=== PATIENT | female | born 1975 | race Caucasian/White ===

== ENCOUNTER → 2017-01-16 | Outpatient (CLI) | payer OTHER ==
--- NOTE | 2017-01-16 10:28 | REP ---
Clinical: Dating and viability. Technique: Transabdominal and transvaginal pelvic ultrasound with color Doppler evaluation. Findings: Single live early intrauterine is appreciated. Gestational sac with yolk sac and pole identified. [place]-rump length of 6 mm corresponds to 6 weeks 3 days gestational age with estimated date of delivery 09/08/2017 . heart rate equals 133 beats per minute. No gross abnormalities are identified. Impression: Single live early intrauterine at 6 weeks 3 days gestational age. Complete anatomical assessment should be performed and 19-20 weeks. Signed by Antonio Rain MD 01/16/2017 10:20 A
== END ==
LOC: M LAB 08:23
PROVIDERS: ATTEND Student in an Organized Health Care Education/Training Program
DX: O36.80X0 Pregnancy with inconclusive fetal viability, not applicable or unspecified (principal); Z3A.01 Less than 8 weeks gestation of pregnancy